=== PATIENT | male | born 1935 | race Caucasian/White ===

== ENCOUNTER 2020-06-13 07:15 | Inpatient (IN) | payer OTHER, MEDICARE ==
[~2020-06-13] VITALS: Ht 182.9 cm; Wt 89.1 kg
[~2020-06-13 07:15] MED LIST: ALLO100 PO; AMLO10 PO; AMLO5; AMLO5 PO; ASPI325 PO; ATEN25 PO; ATOR40TA PO; CARV6.25 PO; DIGO.125; FURO20; FURO40 PO; GLIP5 PO; LISI20 PO; METF500; Micro-K10 MEQ PO; PRED20 PO; WARF5 PO
[2020-06-13 07:34] LABS: BASOPHILS ABSOLUTE AUTO 0.02 K/mm3 (0.00-0.23); BASOPHILS PERCENT AUTO 0 % (0-2); EOSINOPHILS ABSOLUTE AUTO 0.04 K/mm3 (0.00-0.68); EOSINOPHILS PERCENT AUTO 0 % (0-6); Hematocrit 39.8 % (37.0-53.0); Hemoglobin 13.3 g/dL (13.5-17.5); IMMATURE GRAN ABSOLUTE AUTO 0.34 K/mm3 (0.00-0.10); IMMATURE GRAN PERCENT AUTO 3 % (0-1); LYMPHOCYTES ABSOLUTE AUTO 1.34 K/mm3 (0.84-5.20); LYMPHOCYTES PERCENT AUTO 11 % (21-46); MONOCYTES PERCENT AUTO 5 % (4-13); Mean Corpuscular HGB 30.9 pg (26.0-34.0); Mean Corpuscular HGB Conc 33.4 g/dL (31.5-36.5); Mean Corpuscular Volume 92 fL (80-100); Mean Platelet Volume 10.2 fL (9.1-12.4); NEUTROPHILS ABSOLUTE AUTO 10.28 K/mm3 (1.96-9.15); NEUTROPHILS PERCENT AUTO 81 % (41-73); Platelet Count 139 K/mm3 (150-400); RDW Coefficient Variation 13.2 % (11.7-14.2); RDW Standard Deviation 44.9 fL (35.1-46.3); Red Blood Cell Count 4.31 M/mm3 (4.30-5.90); White Blood Cell Count 12.62 K/mm3 (4.00-11.30)
[2020-06-13 07:49] LABS: Albumin, Blood 3.8 g/dL (3.4-5.0); Bilirubin, Total 0.6 mg/dL (0.1-1.0); Bun/Creatinine Ratio 22.3 (12.0-20.0); Calcium, Blood 8.9 mg/dL (8.5-10.1); Creatinine, Blood 1.97 mg/dL (0.60-1.20); Globulin, Blood 3.9 g/dL (2.2-4.0); Potassium, Blood 5.8 mmol/L (3.5-5.5); Total Protein, Blood 7.7 g/dL (6.4-8.2)
[2020-06-13 11:25] LABS: Calcium, Ionized (POC) 0.97 mmol/L (1.10-1.46); Chloride (POC) 105 mmol/L (98-108); Glucose (ISTAT POC) 154 mg/dL (70-99); Hemoglobin (POC) 11.9 g/dL (13.5-17.5); Potassium (POC) 5.6 mmol/L (3.5-5.5); Sodium (POC) 140 mmol/L (135-148); Total CO2 (POC) 31 mmol/L (21-32)
[2020-06-13] MEDS ORDERED: GLIP5ER PO (13:28)
[2020-06-13] MEDS ORDERED: AMLODIPINE BESYL5 MG PO (13:28)
[2020-06-13] MEDS ORDERED: CLOP75 PO (13:29)
[2020-06-13] MEDS ORDERED: FUROSEMIDE40 MG PO (13:30)
[2020-06-13] MEDS ORDERED: LISINOPRIL2.5 MG PO (13:31)
[2020-06-13] MEDS ORDERED: MIRTAZAPINE7.5 M1 PO (13:31)
[2020-06-13] MEDS ORDERED: Aspir 8181 MG PO (13:32)
[2020-06-13 15:13] LABS: Hematocrit 36.5 % (37.0-53.0); Hemoglobin 12.2 g/dL (13.5-17.5)
[2020-06-13 15:29] LABS: Bun/Creatinine Ratio 21.2 (12.0-20.0); Calcium, Blood 8.6 mg/dL (8.5-10.1); Creatinine, Blood 2.03 mg/dL (0.60-1.20); Potassium, Blood 5.7 mmol/L (3.5-5.5)
--- NOTE | 2020-06-13 17:17 | NUR ---
ER ADMIT/ SHIFT SUMMARY- PT A/OX3. PT DENIES ANY PAIN OR OTHER COMPLAINTS SINCE ARRIVAL TO FLOOR. PT UP TO BATHROOM WITH SBA. PT HAS DENIED ANY NAUSEA, VOMITTING OR DIARRHEA SINCE ARRIVAL. LS CLEAR, ON 2L N/C. TELE SR AT 83. NS AT 125ML/HR RUNNING. NO OTHER ACUTE CHANGES SINCE ARRIVAL TO FLOOR. PT ORIENTED TO ROOM AND CALL SYSTEM, CALL LIGHT IN REACH.
--- NOTE | 2020-06-13 17:58 | NUR ---
PT REPORTS HE WOULD LIKE TO BE A DNR CODE STATUS, PT STATES HE DOES NOT WANT TO BE BROUGHT BACK. SPOKE WITH HERB AND ORDER RECEIVED FOR DNR CODE STATUS. VERIFIED AND DNR WRISTBAND PLACED TO LEFT WRIST.
[2020-06-13 20:50] LABS: Hematocrit 34.7 % (37.0-53.0); Hemoglobin 11.4 g/dL (13.5-17.5)
--- NOTE | 2020-06-14 04:30 | NUR ---
SHIFT SUMMARY ASSUMED CARE OF PT AT 1900. PT IS A/OX4. HEART SOUNDS REGULAR, TELE SHOWS SINUS @ 75. LUNG SOUNDS DIMINISHED. PT WAS NOT NEUSEATED UNTIL ABOUT 0400 THIS AM. PT RECEIVED MEDICATION AND FELL BACK ASLEEP. PT WAS CONTINENT T/O THE NIGHT. CALL LIGHT IN REACH, BED IN LOWEST POSTION, BED ALARM ON.
[2020-06-14 04:47] LABS: BASOPHILS ABSOLUTE AUTO 0.01 K/mm3 (0.00-0.23); BASOPHILS PERCENT AUTO 0 % (0-2); EOSINOPHILS ABSOLUTE AUTO 0.02 K/mm3 (0.00-0.68); EOSINOPHILS PERCENT AUTO 0 % (0-6); Hematocrit 33.9 % (37.0-53.0); Hemoglobin 10.9 g/dL (13.5-17.5); IMMATURE GRAN ABSOLUTE AUTO 0.48 K/mm3 (0.00-0.10); IMMATURE GRAN PERCENT AUTO 6 % (0-1); LYMPHOCYTES ABSOLUTE AUTO 1.01 K/mm3 (0.84-5.20); LYMPHOCYTES PERCENT AUTO 12 % (21-46); MONOCYTES ABSOLUTE AUTO 0.59 K/mm3 (0.16-1.47); MONOCYTES PERCENT AUTO 7 % (4-13); Mean Corpuscular HGB 30.9 pg (26.0-34.0); Mean Corpuscular HGB Conc 32.2 g/dL (31.5-36.5); Mean Corpuscular Volume 96 fL (80-100); Mean Platelet Volume 10.4 fL (9.1-12.4); NEUTROPHILS ABSOLUTE AUTO 6.59 K/mm3 (1.96-9.15); NEUTROPHILS PERCENT AUTO 76 % (41-73); Platelet Count 105 K/mm3 (150-400); RDW Coefficient Variation 13.5 % (11.7-14.2); RDW Standard Deviation 47.9 fL (35.1-46.3); Red Blood Cell Count 3.53 M/mm3 (4.30-5.90)
[2020-06-14 05:06] LABS: Calcium, Blood 7.8 mg/dL (8.5-10.1); Creatinine, Blood 2.05 mg/dL (0.60-1.20)
[2020-06-14 09:31] LABS: Stool Occult Blood Guaiac 1 Pos (Neg)
[2020-06-14 09:56] LABS: Adenovirus F 40/41 Not Detected (NOT DETECT); Astrovirus Not Detected (NOT DETECT); Campylobacter Sp Not Detected (NOT DETECT); Cryptosporidium Not Detected (NOT DETECT); Cyclospora Cayetanensis Not Detected (NOT DETECT); E. Coli O157 Not Detected (NOT DETECT); Entamoeba Histolytica Not Detected (NOT DETECT); Enteroaggregative E. coli-EAEC Not Detected (NOT DETECT); Enteropathogenic E. coli-EPEC Not Detected (NOT DETECT); Enterotoxigenic E. coli-ETEC Not Detected (NOT DETECT); Giardia Lamblia Not Detected (NOT DETECT); Norovirus GI/GII Not Detected (NOT DETECT); Plesiomonas Shigelloides Not Detected (NOT DETECT); Rotavirus A Not Detected (NOT DETECT); Salmonella Sp Not Detected (NOT DETECT); Sapovirus Not Detected (NOT DETECT); Shiga Toxin-prod E. coli-STEC Not Detected (NOT DETECT); Shigella/Enteroin E. coli-EIEC Not Detected (NOT DETECT); Vibrio Cholerae Not Detected (NOT DETECT); Vibrio Sp Not Detected (NOT DETECT); Yersinia Enterocolitica Not Detected (NOT DETECT)
[2020-06-14 13:22] LABS: Anion Gap 6 mmol/L (6-16); Blood Urea Nitrogen 47 mg/dL (8-24); CO2, Blood 26 mmol/L (21-32); Chloride, Blood 110 mmol/L (98-108); Creatinine, Blood 2.04 mg/dL (0.60-1.20); Glomerular Filtration Rate 33 (60-); Glucose, Blood 159 mg/dL (70-99); Potassium, Blood 5.3 mmol/L (3.5-5.5); Sodium, Blood 142 mmol/L (136-145); Troponin I <0.015 ng/mL (0.000-0.040)
--- NOTE | 2020-06-14 14:03 | NUR ---
PT TO IMAGING FOR XRAY.
--- NOTE | 2020-06-14 16:36 | NUR ---
SHIFT SUMMARY- PT A/OX3. PT IMPULSIVE AND SBA TO BATHROOM, PT DOES NOT CALL APROPRIATELY. PT WITH BILE EMESIS THIS AM AND NONE SINCE. LARGE SOFT BROWN BM THIS AFTERNOON. PT REPORTED SOME MILD ABD PAIN THIS AM BUT HAS DENIED ANY PAIN SINCE. ABD XRAY COMPLETED. GUIAC POSITIVE STOOL THIS AM BUT GI PANEL NEGATIVE. LS CLEAR, ON RA. HRR. TELE SR AT 80, TELE DC'D. PT TOLERATING CLEAR LIQUIDS. NO OTHER ACUTE CHANGES THIS SHIFT.
--- NOTE | 2020-06-15 05:03 | NUR ---
SHIFT SUMMARY ASSUMED CARE OF PT AT 1900. PT IS A/OX3 WITH TIMES OF CONFUSION. FOR EXAMPLE, ATER PT TOOK SHORT NAP HE ATTEMPTED TO GET OUT OF BED BEUCASE HE THOUGHT IT WAS MORNING TIME. HEART SOUNDS REGULAR, LUNG SOUNDS DIMINISHED. PT IS 1P SBA TO BATHROOM. PT IS IMPULSIVE AND NOT USE THE CALL LIGHT. PT WAS ABLE TO SLEEP DURING THE NIGHT. CALL LIGHT IN REACH, BED IN LOWEST POSITION.
[2020-06-15 12:11] LABS: BASOPHILS ABSOLUTE AUTO 0.01 K/mm3 (0.00-0.23); BASOPHILS PERCENT AUTO 0 % (0-2); EOSINOPHILS ABSOLUTE AUTO 0.02 K/mm3 (0.00-0.68); EOSINOPHILS PERCENT AUTO 0 % (0-6); Hematocrit 27.2 % (37.0-53.0); Hemoglobin 9.1 g/dL (13.5-17.5); IMMATURE GRAN ABSOLUTE AUTO 0.36 K/mm3 (0.00-0.10); IMMATURE GRAN PERCENT AUTO 4 % (0-1); LYMPHOCYTES ABSOLUTE AUTO 1.11 K/mm3 (0.84-5.20); LYMPHOCYTES PERCENT AUTO 13 % (21-46); MONOCYTES ABSOLUTE AUTO 0.62 K/mm3 (0.16-1.47); MONOCYTES PERCENT AUTO 7 % (4-13); Mean Corpuscular HGB 31.7 pg (26.0-34.0); Mean Corpuscular HGB Conc 33.5 g/dL (31.5-36.5); Mean Corpuscular Volume 95 fL (80-100); Mean Platelet Volume 10.6 fL (9.1-12.4); NEUTROPHILS ABSOLUTE AUTO 6.67 K/mm3 (1.96-9.15); NEUTROPHILS PERCENT AUTO 76 % (41-73); Platelet Count 80 K/mm3 (150-400); RDW Coefficient Variation 13.3 % (11.7-14.2); RDW Standard Deviation 46.4 fL (35.1-46.3); Red Blood Cell Count 2.87 M/mm3 (4.30-5.90); White Blood Cell Count 8.79 K/mm3 (4.00-11.30)
[2020-06-15 12:25] LABS: Bun/Creatinine Ratio 26.4 (12.0-20.0); Calcium, Blood 6.6 mg/dL (8.5-10.1); Creatinine, Blood 2.12 mg/dL (0.60-1.20); Potassium, Blood 4.8 mmol/L (3.5-5.5)
--- NOTE | 2020-06-15 19:25 | NUR ---
SHIFT SUMMARY ROYAL HAD ABDOMINAL PAIN THIS SHIFT WITH PALPATION, DISTENDED ABD, BUT DENIED NAUSEA. SON VISITED. SET OFF BA TWICE. CONTINENT URINE IN URINAL. PIV RESTARTED, MIVF @75. WENT TO ABD CT. CBGS ACHS. ORIENTED TO PLACE AND SOMEWHAT TO SITUATION. CALL LIGHT IN REACH, ALARM ON, REPORT GIVEN TO NIGHT NURSE
--- NOTE | 2020-06-15 23:10 | NUR ---
1945 REPORT RECEIVED FROM JAMES OTTO AND CARE ASSUMED.
--- NOTE | 2020-06-16 05:15 | NUR ---
SHIFT SUMMARY: 84 Y/O OBESE MALE RESTED COMFORTABLY ALL SHIFT; DENIES PAIN OR NAUSEA; HAPPY AND COOPERATIVE; BED ALARM APPLIED FOR SAFETY, BED LOW POSITION WITH CALL LIGHT AT SIDE.
[2020-06-16 05:23] LABS: BASOPHILS ABSOLUTE AUTO 0.01 K/mm3 (0.00-0.23); BASOPHILS PERCENT AUTO 0 % (0-2); EOSINOPHILS ABSOLUTE AUTO 0.03 K/mm3 (0.00-0.68); EOSINOPHILS PERCENT AUTO 0 % (0-6); Hematocrit 27.7 % (37.0-53.0); IMMATURE GRAN ABSOLUTE AUTO 0.23 K/mm3 (0.00-0.10); IMMATURE GRAN PERCENT AUTO 2 % (0-1); LYMPHOCYTES ABSOLUTE AUTO 1.22 K/mm3 (0.84-5.20); LYMPHOCYTES PERCENT AUTO 12 % (21-46); MONOCYTES ABSOLUTE AUTO 0.75 K/mm3 (0.16-1.47); MONOCYTES PERCENT AUTO 7 % (4-13); Mean Corpuscular HGB 30.9 pg (26.0-34.0); Mean Corpuscular HGB Conc 32.5 g/dL (31.5-36.5); Mean Corpuscular Volume 95 fL (80-100); Mean Platelet Volume 11.5 fL (9.1-12.4); NEUTROPHILS ABSOLUTE AUTO 7.98 K/mm3 (1.96-9.15); NEUTROPHILS PERCENT AUTO 78 % (41-73); Platelet Count 89 K/mm3 (150-400); RDW Coefficient Variation 13.4 % (11.7-14.2); RDW Standard Deviation 47.2 fL (35.1-46.3); Red Blood Cell Count 2.91 M/mm3 (4.30-5.90); White Blood Cell Count 10.22 K/mm3 (4.00-11.30)
[2020-06-16 06:23] LABS: Albumin, Blood 2.2 g/dL (3.4-5.0); Albumin/Globulin Ratio 0.7 (0.8-1.8); Bilirubin, Total 0.7 mg/dL (0.1-1.0); Bun/Creatinine Ratio 26.1 (12.0-20.0); Calcium, Blood 6.5 mg/dL (8.5-10.1); Creatinine, Blood 2.38 mg/dL (0.60-1.20); Potassium, Blood 4.5 mmol/L (3.5-5.5); Total Protein, Blood 5.2 g/dL (6.4-8.2)
[2020-06-16 10:31] LABS: Magnesium, Blood 1.7 mg/dL (1.6-2.4); Thyroid Stimulating Hormone 1.44 uIU/mL (0.360-4.800)
[2020-06-16 11:49] LABS: Iron Serum 27 ug/dL (65-175); Percent Saturation 12.1 % (20.0-50.0); Total Iron Binding Capacity 223 ug/dL (250-450); Troponin I <0.015 ng/mL (0.000-0.040)
[2020-06-16 12:07] LABS: Ferritin, Serum 235 ng/mL (26-388)
--- NOTE | 2020-06-16 19:12 | NUR ---
SHIFT SUMMARY ROYAL DENIED PAIN THIS SHIFT EXCEPT WITH ABDOMINAL PALPATION. SON VISITED. POOR PO INTAKE, BUT DENIES NAUSEA. CONTINENT IN URINAL. HAD RENAL U/S THIS SHIFT. TELE STARTED, PT NEWLY IN A-FIB, DR AMAAY AWARE. SHE PUT IN FOR METOPROLOL. PT WORKED WITH PT, RECOMMENDING SNF. TOOK MEDS PRESCRIBED. CALL LIGHT IN REACH, BED ALARM ON, SETS IT OFF FOR GETTING UP. AO1 WITH GAIT BELT TO GET OOB. REPORT GIVEN TO NIGHT NURSE
[2020-06-17 04:30] LABS: BASOPHILS ABSOLUTE AUTO 0.01 K/mm3 (0.00-0.23); BASOPHILS PERCENT AUTO 0 % (0-2); EOSINOPHILS ABSOLUTE AUTO 0.08 K/mm3 (0.00-0.68); EOSINOPHILS PERCENT AUTO 1 % (0-6); Hematocrit 27.9 % (37.0-53.0); Hemoglobin 9.2 g/dL (13.5-17.5); IMMATURE GRAN ABSOLUTE AUTO 0.22 K/mm3 (0.00-0.10); IMMATURE GRAN PERCENT AUTO 3 % (0-1); LYMPHOCYTES PERCENT AUTO 13 % (21-46); MONOCYTES ABSOLUTE AUTO 0.75 K/mm3 (0.16-1.47); MONOCYTES PERCENT AUTO 9 % (4-13); Mean Corpuscular HGB 31.3 pg (26.0-34.0); Mean Corpuscular Volume 95 fL (80-100); Mean Platelet Volume 10.9 fL (9.1-12.4); NEUTROPHILS ABSOLUTE AUTO 6.53 K/mm3 (1.96-9.15); NEUTROPHILS PERCENT AUTO 75 % (41-73); Platelet Count 99 K/mm3 (150-400); RDW Coefficient Variation 13.6 % (11.7-14.2); RDW Standard Deviation 46.5 fL (35.1-46.3); Red Blood Cell Count 2.94 M/mm3 (4.30-5.90); White Blood Cell Count 8.69 K/mm3 (4.00-11.30)
[2020-06-17 04:49] LABS: Albumin, Blood 2.1 g/dL (3.4-5.0); Albumin/Globulin Ratio 0.7 (0.8-1.8); Bilirubin, Total 0.5 mg/dL (0.1-1.0); Bun/Creatinine Ratio 29.6 (12.0-20.0); Calcium, Blood 6.6 mg/dL (8.5-10.1); Creatinine, Blood 2.16 mg/dL (0.60-1.20); Magnesium, Blood 1.7 mg/dL (1.6-2.4); Phosphorus, Blood 2.5 mg/dL (2.5-4.9); Potassium, Blood 4.1 mmol/L (3.5-5.5); Total Protein, Blood 5.1 g/dL (6.4-8.2)
--- NOTE | 2020-06-17 05:03 | NUR ---
SHIFT SUMMARY PATIENT HAD NO ACUTE CHANGES OBSERVED. AXOX 2-3 AND SBA TO USE URINAL AT BEDSIDE STANDING. PIV REMAINS INTACT. NS INFUSING AT 50 mL/HR. CBG 173 AND DIESEL LUBE TECH REPORTS AFIB W/BBB AT 118. AFEBRILE. DENIES PAIN, SOB, AND N/V. PATIENT ABLE TO SLEEP MOST OF THE SHIFT. CALL LIGHT IN REACH. BED IN LOWEST POSITION. WILL CONTINUE TO MONITOR UNTIL DAY SHIFT NURSE ASSUMES CARE.
--- NOTE | 2020-06-17 16:48 | NUR ---
SUMM- PT ALERT AND ORIENTED X3, MILDLY CONFUSED/FORGETFUL. EASILY IRRITABLE. LOW MOTIVATION, REFUSED SHOWER 2 DAYS IN A ROW. STOOD AT THE BED TWICE TODAY TO USE URINAL. MILDLY UNSTEADY AND SLIGHT WEAKNESS. NO NAUSEA TODAY. NO BOWEL MOVEMENTS. TOLERATING ADA DIET. SUGARS MANAGED. CONT WITH IVF. PLAN TO GO HOME WITH SON TO CARE FOR HIM AND HOME HEALTH. VSS, AFIB 110'S. DENIES PAIN. USES CALL LIGHT.
--- NOTE | 2020-06-18 04:32 | NUR ---
SHIFT SUMMARY PATIENT HAD NO ACUTE CHANGES OBSERVED. AXOX 3 AND ONE ASSIST TO BR. SBA TO USE URINAL AT BEDSIDE. CBG 145. PIV REMAINS INTACT. RN DERMATOLOGY REPORTS A-FIB 136 BEFORE GIVEN PO METOPROLOL AND LATER IN SHIFT A-FIB 106. VSS/AFEBRILE. DENIES PAIN, SOB, AND N/V. NS INFUSING AT 50 mL/HR. WATCHED TV T/O SHIFT. CALL LIGHT IN REACH. BED IN LOWEST POSITION AND ALARM ACTIVATED. WILL CONTINUE TO MONITOR UNTIL DAY SHIFT NURSE ASSUMES CARE.
[2020-06-18 04:58] LABS: Hematocrit 29.1 % (37.0-53.0); Hemoglobin 9.4 g/dL (13.5-17.5)
[2020-06-18 05:23] LABS: Albumin, Blood 2.1 g/dL (3.4-5.0); Anion Gap 10 mmol/L (6-16); Blood Urea Nitrogen 62 mg/dL (8-24); Bun/Creatinine Ratio 31.5 (12.0-20.0); CO2, Blood 20 mmol/L (21-32); Calcium, Blood 7.1 mg/dL (8.5-10.1); Chloride, Blood 113 mmol/L (98-108); Creatinine, Blood 1.97 mg/dL (0.60-1.20); Glomerular Filtration Rate 34 (60-); Glucose, Blood 138 mg/dL (70-99); Phosphorus, Blood 2.8 mg/dL (2.5-4.9); Potassium, Blood 3.9 mmol/L (3.5-5.5); Sodium, Blood 143 mmol/L (136-145)
[2020-06-18] MEDS ORDERED: METO25ER (11:10)
--- NOTE | 2020-06-18 11:53 | NUR ---
DISCHARGE SUMMARY PT LEFT WITH SON BY WC, DECLINED HOSPITAL ESCORT OUT. VERY IMPATIENT TO LEAVE. ATTEMPTED TO EDUCATED ON AFIB, HE DECLINED EDUCATION, WANTING TO LEAVE. ADVISED TO ESTABLISH CARE WITH PCP. PER CM, GIVEN PACKET TO GO TO URGENT CARE AT [facility] [place], OR [facility]. ADVISED ON STOPPING PRIOR BP MEDS AND STARTING METOPROLOL. FAXED MED TO [facility] PER PT REQUEST. PIV REMOVED.
== END 2020-06-18 11:50 | disposition left against medical advice (07) | DRG 391 ==
LOC: ER 07:15 → MEDS 07:16 → ENPENDDIS 06-18 10:21 → MEDS 06-18 11:50
PROVIDERS: Emergency Medicine; Internal Medicine; Internal Medicine Nephrology; Nurse Practitioner Acute Care; ADMIT Internal Medicine
DX: A08.4 Viral intestinal infection, unspecified (principal); G93.41 Metabolic encephalopathy; N17.9 Acute kidney failure, unspecified; Z20.822 Contact with and (suspected) exposure to COVID-19; I12.9 Hypertensive chronic kidney disease with stage 1 through stage 4 chronic kidney disease, or unspecified chronic kidney disease; Z66 Do not resuscitate; I25.10 Atherosclerotic heart disease of native coronary artery without angina pectoris; E78.5 Hyperlipidemia, unspecified; M10.9 Gout, unspecified; E11.22 Type 2 diabetes mellitus with diabetic chronic kidney disease; E87.5 Hyperkalemia; E83.51 Hypocalcemia; D63.1 Anemia in chronic kidney disease; E86.9 Volume depletion, unspecified; I48.91 Unspecified atrial fibrillation; R09.02 Hypoxemia; E66.9 Obesity, unspecified; E11.43 Type 2 diabetes mellitus with diabetic autonomic (poly)neuropathy; K31.84 Gastroparesis; N18.30 Chronic kidney disease, stage 3 unspecified; Z53.29 Procedure and treatment not carried out because of patient's decision for other reasons; E88.09 Other disorders of plasma-protein metabolism, not elsewhere classified; E86.0 Dehydration; Z90.49 Acquired absence of other specified parts of digestive tract; Z95.5 Presence of coronary angioplasty implant and graft; I25.2 Old myocardial infarction; Z87.891 Personal history of nicotine dependence; Z79.899 Other long term (current) drug therapy; Z86.718 Personal history of other venous thrombosis and embolism; Z79.82 Long term (current) use of aspirin; Z79.02 Long term (current) use of antithrombotics/antiplatelets
CPT/HCPCS: 0097U; 36415; 71045; 74018; 74150; 76770; 80047; 80048; 80053; 80069; 82272; 82330; 82607; 82728; 82746; 82947; 83036; 83540; 83550; 83605; 83690; 83735; 84100; 84132; 84443; 84484; 85014; 85018; 85025; 93005; 93010; 93306; 94640; 94760; 96361; 96374; 96375; 96376; 97162; 97530; 99285-25; A9270; C9113; G0378; J0780; J0881; J1940; J2405; J2550; J2765; J7030; J7120

== ENCOUNTER 2020-10-26 14:00 | Emergency (ER) | payer MEDICARE ==
[~2020-10-26] VITALS: Ht 182.9 cm; Wt 68.0 kg
[~2020-10-26 14:00] MED LIST changes: +AMLODIPINE BESYL5 MG PO; +Aspir 8181 MG PO; +CLOP75 PO; +FUROSEMIDE40 MG PO; +GLIP5ER PO; +LISINOPRIL2.5 MG PO; +METO25ER; +MIRTAZAPINE7.5 M1 PO
[2020-10-26 14:16] LABS: Hematocrit 37.4 % (37.0-53.0); Hemoglobin 11.9 g/dL (13.5-17.5); Mean Corpuscular HGB 30.4 pg (26.0-34.0); Mean Corpuscular HGB Conc 31.8 g/dL (31.5-36.5); Mean Corpuscular Volume 96 fL (80-100); Mean Platelet Volume 10.1 fL (9.1-12.4); Platelet Count 285 K/mm3 (150-400); RDW Coefficient Variation 15.2 % (11.7-14.2); RDW Standard Deviation 53.2 fL (35.1-46.3); Red Blood Cell Count 3.91 M/mm3 (4.30-5.90); White Blood Cell Count 15.17 K/mm3 (4.00-11.30)
[2020-10-26 14:39] LABS: Albumin, Blood 3.3 g/dL (3.4-5.0); Albumin/Globulin Ratio 0.9 (0.8-1.8); Bilirubin, Total 0.5 mg/dL (0.1-1.0); Bun/Creatinine Ratio 19.5 (12.0-20.0); Calcium, Blood 9.8 mg/dL (8.5-10.1); Creatinine, Blood 2.41 mg/dL (0.60-1.20); Globulin, Blood 3.8 g/dL (2.2-4.0); Total Protein, Blood 7.1 g/dL (6.4-8.2)
[2020-10-26 15:14] LABS: BAND PERCENT MAN 2 % (0-8); BASOPHILS PERCENT MAN 0 % (0-2); EOSINOPHILS PERCENT MAN 0 % (0-6); LYMPHOCYTES % ATYPICAL MANUAL 2 % (0-0); LYMPHOCYTES ABSOLUTE MAN 9.86 K/mm3 (0.84-5.20); LYMPHOCYTES PERCENT MAN 63 % (21-46); MONOCYTES PERCENT MAN 2 % (4-13); SEG NEUTROPHILS PERCENT MAN 31 % (41-73); TOTAL CELLS COUNTED 100
[2020-10-26 15:41] LABS: Source, Urine Voided
[2020-10-26 15:51] LABS: Appearance, Urine Clear (Clear); Bilirubin, Urine Neg (Neg); Blood, Urine Neg (Neg); Color, Urine Yellow (P-Yellow); Glucose Qualitative, Urine Neg (Neg); Ketones, Urine Neg (Neg); Leukocyte Esterase, Urine Neg (Neg); Nitrite, Urine Neg (Neg); Protein, Urine 1+ (Neg); Urobilinogen, Urine NORM (Normal)
== END 2020-10-26 16:00 | disposition short-term general hospital (02) ==
LOC: ER 14:00
PROVIDERS: Emergency Medicine
DX: S12.031A Nondisplaced posterior arch fracture of first cervical vertebra, initial encounter for closed fracture (principal); S12.100A Unspecified displaced fracture of second cervical vertebra, initial encounter for closed fracture; S01.01XA Laceration without foreign body of scalp, initial encounter; I48.91 Unspecified atrial fibrillation; E11.22 Type 2 diabetes mellitus with diabetic chronic kidney disease; N18.30 Chronic kidney disease, stage 3 unspecified; E78.5 Hyperlipidemia, unspecified; Z87.891 Personal history of nicotine dependence; Z79.899 Other long term (current) drug therapy; Z79.84 Long term (current) use of oral hypoglycemic drugs; Z79.82 Long term (current) use of aspirin; W01.10XA Fall on same level from slipping, tripping and stumbling with subsequent striking against unspecified object, initial encounter
CPT/HCPCS: 12013; 51702; 70450; 71045; 72125; 80053; 85025; 86850; 86900; 86901; 93005; 93010; 96374-59; 99285-25; G0480; J2405; L0160

== ENCOUNTER → 2020-12-25 | Outpatient (CLI) | payer MEDICARE ==
[2020-12-25 15:23] LABS: BASOPHILS ABSOLUTE AUTO 0.01 K/mm3 (0.00-0.23); BASOPHILS PERCENT AUTO 0 % (0-2); EOSINOPHILS ABSOLUTE AUTO 0.03 K/mm3 (0.00-0.68); EOSINOPHILS PERCENT AUTO 1 % (0-6); Hematocrit 33.7 % (37.0-53.0); Hemoglobin 10.6 g/dL (13.5-17.5); IMMATURE GRAN ABSOLUTE AUTO 0.05 K/mm3 (0.00-0.10); IMMATURE GRAN PERCENT AUTO 1 % (0-1); LYMPHOCYTES ABSOLUTE AUTO 1.71 K/mm3 (0.84-5.20); LYMPHOCYTES PERCENT AUTO 47 % (21-46); MONOCYTES ABSOLUTE AUTO 0.21 K/mm3 (0.16-1.47); MONOCYTES PERCENT AUTO 6 % (4-13); Mean Corpuscular HGB 30.1 pg (26.0-34.0); Mean Corpuscular HGB Conc 31.5 g/dL (31.5-36.5); Mean Corpuscular Volume 96 fL (80-100); Mean Platelet Volume 9.9 fL (9.1-12.4); NEUTROPHILS ABSOLUTE AUTO 1.62 K/mm3 (1.96-9.15); NEUTROPHILS PERCENT AUTO 45 % (41-73); Platelet Count 140 K/mm3 (150-400); RDW Coefficient Variation 15.3 % (11.7-14.2); RDW Standard Deviation 53.9 fL (35.1-46.3); Red Blood Cell Count 3.52 M/mm3 (4.30-5.90); White Blood Cell Count 3.63 K/mm3 (4.00-11.30)
[2020-12-25 15:57] LABS: Albumin, Blood 2.5 g/dL (3.4-5.0); Albumin/Globulin Ratio 0.7 (0.8-1.8); Bilirubin, Total 0.4 mg/dL (0.1-1.0); Bun/Creatinine Ratio 17.5 (12.0-20.0); Calcium, Blood 8.2 mg/dL (8.5-10.1); Creatinine, Blood 1.89 mg/dL (0.60-1.20); Globulin, Blood 3.8 g/dL (2.2-4.0); Potassium, Blood 4.9 mmol/L (3.5-5.5); Total Protein, Blood 6.3 g/dL (6.4-8.2)
== END | disposition home or self-care (01) ==
LOC: LAB 13:20 → LAB SHORT 13:20
PROVIDERS: Nurse Practitioner Family
DX: I12.9 Hypertensive chronic kidney disease with stage 1 through stage 4 chronic kidney disease, or unspecified chronic kidney disease (principal); E11.22 Type 2 diabetes mellitus with diabetic chronic kidney disease; N18.30 Chronic kidney disease, stage 3 unspecified; I25.10 Atherosclerotic heart disease of native coronary artery without angina pectoris; E78.5 Hyperlipidemia, unspecified; E43 Unspecified severe protein-calorie malnutrition
CPT/HCPCS: 80053; 83036; 85025